=== PATIENT | female | born 2000 | race African-American/Black ===

== ENCOUNTER 2021-12-08 22:20 | Day surgery (SDC) | payer OTHER ==
[2021-12-08] MEDS ORDERED: hydrALAZINE 20 MG/ML VIAL SLOW IVP PRN (22:47)
[2021-12-08 22:51] VITALS: BMI 30.7
[2021-12-08] MEDS ORDERED: Acetaminophen 500 MG TAB PO SCH (23:15)
== END 2021-12-09 00:10 | disposition home or self-care (01) ==
LOC: CSHLD/OP 22:20
PROVIDERS: ATTEND Obstetrics & Gynecology
DX: O99.891 Other specified diseases and conditions complicating pregnancy (principal); R10.9 Unspecified abdominal pain; M54.9 Dorsalgia, unspecified; Z3A.33 33 weeks gestation of pregnancy; W18.30XA Fall on same level, unspecified, initial encounter
CPT/HCPCS: 99282

== ENCOUNTER 2021-12-30 19:58 | Day surgery (SDC) | payer OTHER ==
[2021-12-30 20:29] VITALS: BMI 30.9
[2021-12-30] MEDS ORDERED: hydrALAZINE 20 MG/ML VIAL SLOW IVP PRN (20:46)
== END 2021-12-30 22:25 | disposition home or self-care (01) ==
LOC: CSHLD/OP 19:58
PROVIDERS: ATTEND Family Medicine
DX: O99.891 Other specified diseases and conditions complicating pregnancy (principal); R10.31 Right lower quadrant pain; R10.32 Left lower quadrant pain; O09.293 Supervision of pregnancy with other poor reproductive or obstetric history, third trimester; Z3A.36 36 weeks gestation of pregnancy
CPT/HCPCS: 87480; 87510; 87660

== ENCOUNTER 2022-01-18 21:06 | Day surgery (SDC) | payer OTHER ==
[2022-01-18 21:43] VITALS: BMI 31.6
[2022-01-18 22:25] LABS: Fetal Membranes Rupture No Membranes Rupture (No Rupture)
[2022-01-18] MEDS ORDERED: Acetaminophen 500 MG TAB PO PRN (23:19)
== END 2022-01-19 00:25 | disposition home or self-care (01) ==
LOC: CSHLD/OP 21:06
PROVIDERS: ATTEND Family Medicine
DX: O99.891 Other specified diseases and conditions complicating pregnancy (principal); N89.8 Other specified noninflammatory disorders of vagina; O47.1 False labor at or after 37 completed weeks of gestation; R51.9 Headache, unspecified; H53.8 Other visual disturbances; O99.820 Streptococcus B carrier state complicating pregnancy; Z3A.39 39 weeks gestation of pregnancy
CPT/HCPCS: 84112

== ENCOUNTER 2022-01-20 03:55 | Inpatient (IN) | payer OTHER ==
[2022-01-20] MEDS ORDERED: hydrALAZINE 20 MG/ML VIAL SLOW IVP PRN ×3 (04:13→09:37)
[2022-01-20] MEDS ORDERED: Morphine 10 MG/ML VIAL SLOW IVP SCH ×2 (04:45→05:30)
[2022-01-20] MEDS ORDERED: Morphine 10 MG/ML VIAL ONE (05:01)
[2022-01-20] MEDS ORDERED: Promethazine HCl 25 MG/ML VIAL IM SCH (05:30)
[2022-01-20] MEDS ORDERED: Ibuprofen 800 MG TAB PO PRN (08:55)
[2022-01-20] MEDS ORDERED: Promethazine HCl 25 MG/ML VIAL IM PRN (08:55)
[2022-01-20] MEDS ORDERED: Methylergonovine 0.2 MG/ML VIAL IM PRN (08:55)
[2022-01-20] MEDS ORDERED: Ondansetron PF 4 MG/2 ML Vial IVP PRN (08:55)
[2022-01-20] MEDS ORDERED: Misoprostol 200 MCG TAB PR PRN (08:55)
[2022-01-20] MEDS ORDERED: Lidocaine 1% (PF) 30 ML VIAL SC PRN (08:55)
[2022-01-20] MEDS ORDERED: Butorphanol Tartrate 1 MG/ML VIAL SLOW IVP PRN (08:55)
[2022-01-20] MEDS ORDERED: Carboprost 250 MCG/ML AMP IM PRN (08:55)
[2022-01-20] MEDS ORDERED: Diphenoxylate HCl/Atropine Tablet PO PRN (08:55)
[2022-01-20] MEDS ORDERED: Lactated Ringer's 1,000 ML IV SCH (09:00)
[2022-01-20] MEDS ORDERED: Acetaminophen 500 MG TAB PO SCH (09:00)
[2022-01-20] MEDS ORDERED: Penicillin G Potassium 5 MILL.UNITS in Sodium Chloride 0.9% 100 ML IVPB SCH (09:00)
[2022-01-20] MEDS ORDERED: Penicillin G Potassium 5 MILL.UNITS VIAL ONE (09:01)
[2022-01-20] MEDS: NS w/ Oxytocin 30 units 500 ML IV SCH ×2 (09:22→10:26)
[2022-01-20] MEDS ORDERED: Bisacodyl 10 MG SUPP PR PRN (09:37)
[2022-01-20] MEDS ORDERED: Boostrix 0.5 ML (Tdap) VIAL IM ONE (09:37)
[2022-01-20] MEDS ORDERED: Milk Of Magnesia 30 ML UDCUP PO PRN (09:37)
[2022-01-20 09:57] LABS: Hemoglobin 9.3 g/dL (12.0-15.5); Mean Corpuscular HGB CONC 32.3 g/dL (32.0-36.0); Mean Corpuscular Hemoglobin 24.2 pg (27.0-33.0); Mean Corpuscular Volume 74.8 fl (81.6-98.3); Mean Platelet Volume 9.2 fl (7.4-10.4); Platelet Count 223 10x3/uL (150-450); RBC Distribution Width 14.6 % (11.5-14.5); Red Blood Cell (RBC) Count 3.85 10x6/uL (3.90-5.03); White Blood Cell (WBC) Count 9.6 10x3/uL (3.5-10.5)
[2022-01-20 10:33] LABS: HBSAg Index 0.19 S/CO (0-0.99); Hep B Surf Ag Non-Reactive S/CO (NonReactive); Syphilis Antibody Nonreactive (Nonreactive); Syphilis Antibody Index 0.05 S/CO (<1.00 Non-Reactive)
[2022-01-20 10:55] VITALS: BMI 31.6
[2022-01-20] MEDS ORDERED: HYDROcodone/Acetaminophen 5/325 mg Tablet PO SCH (11:45)
[2022-01-20] MEDS ORDERED: Penicillin G 2.5 MILL.units 2.5 MILL.UNITS in Premix Bag 1 BAG IVPB SCH (13:00)
[2022-01-20] MEDS ORDERED: Ibuprofen 800 MG TAB PO SCH (14:00)
[2022-01-20 19:39] LABS: SARS-CoV-2 NAA Rapid Test DETECTED (NotDetected)
[2022-01-20] MEDS: Ibuprofen 800 MG TAB PO SCH (19:53)
[2022-01-20] MEDS: Docusate 100 MG CAP PO SCH (22:00)
[2022-01-21] MEDS ORDERED: Acetaminophen 500 MG TAB PO PRN (00:49)
[2022-01-21] MEDS ORDERED: Cyclobenzaprine 10 MG TAB PO PRN (00:49)
[2022-01-21] MEDS: Ibuprofen 800 MG TAB PO SCH ×3 (04:00→21:06)
[2022-01-21 05:29] LABS: Mean Corpuscular HGB CONC 32.8 g/dL (32.0-36.0); Mean Corpuscular Hemoglobin 24.5 pg (27.0-33.0); Mean Corpuscular Volume 74.8 fl (81.6-98.3); Mean Platelet Volume 9.7 fl (7.4-10.4); Platelet Count 256 10x3/uL (150-450); RBC Distribution Width 14.8 % (11.5-14.5); Red Blood Cell (RBC) Count 3.26 10x6/uL (3.90-5.03); White Blood Cell (WBC) Count 9.6 10x3/uL (3.5-10.5)
[2022-01-21 07:28] LABS: MDiff Complete? YES; Platelet Morphology Comment Appears Adequate
[2022-01-21 07:31] LABS: Band 1 % (5-11); Eosinophils 1 % (0-10); Lymphocytes 29 % (21-51); Metamyelocyte 1 % (0-0); Monocytes 8 % (0-10); Neutrophil 60 % (42-75)
[2022-01-21] MEDS: Ferrous Sulfate 325 MG TAB PO SCH ×3 (08:04→21:06)
[2022-01-21] MEDS: Docusate 100 MG CAP PO SCH ×2 (08:15→21:06)
[2022-01-22] MEDS: Ibuprofen 800 MG TAB PO SCH (05:47)
[2022-01-22] MEDS: Docusate 100 MG CAP PO SCH (08:22)
[2022-01-22] MEDS: Ferrous Sulfate 325 MG TAB PO SCH (08:22)
[2022-01-22 08:27] VITALS: BP 121/56; TEMP 97.9
== END 2022-01-22 11:05 | disposition home or self-care (01) | DRG 805 ==
LOC: CSHLD/OP 03:55 → CSHLD 09:31 → CSHANTE 20:55
PROVIDERS: ADMIT Family Medicine; ATTEND Family Medicine
PROC: 10E0XZZ Delivery of Products of Conception, External Approach (ICD-10-PCS; principal; 2022-01-20)
PROC: 0UQG7ZZ Repair Vagina, Via Natural or Artificial Opening (ICD-10-PCS; 2022-01-20)
PROC: 8E0ZXY6 Isolation (ICD-10-PCS; 2022-01-20)
DX: O99.824 Streptococcus B carrier state complicating childbirth (principal); U07.1 COVID-19; Z37.0 Single live birth; O98.52 Other viral diseases complicating childbirth; Z3A.39 39 weeks gestation of pregnancy; Z79.899 Other long term (current) drug therapy; O42.02 Full-term premature rupture of membranes, onset of labor within 24 hours of rupture; O77.0 Labor and delivery complicated by meconium in amniotic fluid; O71.4 Obstetric high vaginal laceration alone
CPT/HCPCS: 36415; 84112; 85025; 85027; 86780; 86850; 86900; 86901; 87340; 99283; 99285; J2001; J2210; J2270; J2540; J2550; J2590; J3490; U0002